=== PATIENT | female | born 1980 | race Hispanic/Latino ===

== ENCOUNTER 2019-02-21 13:11 | Outpatient (CLI) | payer OTHER ==
--- NOTE | 2019-02-21 14:33 | Mammography Report ---
BILATERAL DIGITAL DIAGNOSTIC MAMMOGRAM WITHOUT CAD AND LEFT BREAST ULTRASOUND HISTORY: Left palpable breast lumps and tenderness. COMPARISON: None. FINDINGS: Bilateral Mammogram: Digital CC and MLO views of both breasts demonstrate a scattered fibroglandular appearance of the breast tissue. No mass, architectural distortion or suspicious calcifications. No mammographic findings at an upper outer palpable marker and at an upper inner palpable marker. Left Breast Ultrasound: Sonographic evaluation of the left breast demonstrated a benign intraparench ymal lymph node at 1:00 12 cm from the nipple measuring 4 x 3 x 6 mm. It is located near where she fe els a lump and tenderness. However, no mass, cyst or shadowing. Ultrasound of the left breast demonst rated normal fibroglandular and fatty structures at 11:00 8 cm from the nipple where she feels a lump and tenderness. No mass, cyst or shadowing. IMPRESSION Negative mammogram and negative left breast ultrasound. If the clinical examination remains stable, recommend bilateral screening mammograms beginning annual ly at age 40 per the current [employer] guidelines or at intervals appropriate for the patient's risk factors. BIRADS 1: Negative According to the [employer], yearly mammograms are recommended starting at age 40 and continuing as long as a woman is in good health. Clinical Breast Exams should be part of a period ic health exam-about every 3 years for women in their 20s and 30s and every year for women 40 and ove r. Breast self exam is an option for women starting in their 20s. Any breast change noted on a breast self exam should be reported promptly to the patient's healthcare provider. Breast MRI is recommende d for women with an approximately 20-25% or greater lifetime risk of breast cancer, including women w ith a strong family history of breast or ovarian cancer and women who have been treated for Hodgkin's disease. A negative Mammography report should not discourage follow up or biopsy of a clinically significant f inding and/or abnormality. Dense breast tissue may obscure small neoplasms. Signer Name: Raymond Michael MD Signed: 02/21/2019 2:29 PM Workstation Name: [id number]
--- NOTE | 2019-02-21 14:39 | Ultrasound Report ---
BILATERAL DIGITAL DIAGNOSTIC MAMMOGRAM WITHOUT CAD AND LEFT BREAST ULTRASOUND HISTORY: Left palpable breast lumps and tenderness. COMPARISON: None. FINDINGS: Bilateral Mammogram: Digital CC and MLO views of both breasts demonstrate a scattered fibr oglandular appearance of the breast tissue. No mass, architectural distortion or suspicious calcifica tions. No mammographic findings at an upper outer palpable marker and at an upper inner palpable andrea er. Left Breast Ultrasound: Sonographic evaluation of the left breast demonstrated a benign intraparenchy mal lymph node at 1:00 12 cm from the nipple measuring 4 x 3 x 6 mm. It is located near where she fee ls a lump and tenderness. However, no mass, cyst or shadowing. Ultrasound of the left breast demonstr ated normal fibroglandular and fatty structures at 11:00 8 cm from the nipple where she feels a lump and tenderness. No mass, cyst or shadowing. IMPRESSION Negative mammogram and negative left breast ultrasound. If the clinical examination remains stable, recommend bilateral screening mammograms beginning annual ly at age 40 per the current [employer] guidelines or at intervals appropriate for the patient's risk factors. BIRADS 1: Negative According to the [employer], yearly mammograms are recommended starting at age 40 and continuing as long as a woman is in good health. Clinical Breast Exams should be part of a period ic health exam-about every 3 years for women in their 20s and 30s and every year for women 40 and ove r. Breast self exam is an option for women starting in their 20s. Any breast change noted on a breast self exam should be reported promptly to the patient's healthcare provider. Breast MRI is recommende d for women with an approximately 20-25% or greater lifetime risk of breast cancer, including women w ith a strong family history of breast or ovarian cancer and women who have been treated for Hodgkin's disease. A negative Mammography report should not discourage follow up or biopsy of a clinically significant f inding and/or abnormality. Dense breast tissue may obscure small neoplasms. Signer Name: Raymond Michael MD Signed: 02/21/2019 2:34 PM Workstation Name: [id number]
== END 2019-02-21 13:12 | disposition home or self-care (01) ==
LOC: SPVWC 13:11
PROVIDERS: ATTEND Obstetrics & Gynecology
DX: N63.20 Unspecified lump in the left breast, unspecified quadrant (principal); N64.4 Mastodynia
CPT/HCPCS: 77066